=== PATIENT | female | born 1950 | race Native Hawaiian/Other Pacific Islander ===

== ENCOUNTER 2018-08-21 15:47 | Outpatient (CLI) | payer OTHER ==
[~2018-08-21 15:47] MED LIST: ASPIRIN325 M1 PO; ATEN50TA36 PO; FENOFIBRATE160 MG PO; HYDR25TA60 PO; LIPITOR40 MG PO; LOTREL1 CA3 PO; MULTIVITAMI1 PO; NEXIUM40 M1 PO
== END 2018-08-21 23:34 | disposition home or self-care (01) ==
LOC: LABW 15:47
DX: R19.7 Diarrhea, unspecified (principal)
CPT/HCPCS: 82272; 82705; 83630; 87015; 87045; 87324; 87328; 87329; 87449; 87899

== ENCOUNTER 2019-01-13 12:32 | Outpatient (CLI) | payer OTHER ==
[2019-01-13 12:48] LABS: PLATELET COUNT 299 K/uL (152-353)
== END 2019-01-13 21:57 | disposition home or self-care (01) ==
LOC: LABW 12:32 → US 13:00 → LABW 21:57
PROVIDERS: Internal Medicine Gastroenterology
DX: R10.31 Right lower quadrant pain (principal)
CPT/HCPCS: 36415; 80076; 85027

== ENCOUNTER 2019-04-14 11:03 | Outpatient (CLI) | payer OTHER ==
[2019-04-14 11:59] LABS: PLATELET COUNT 270 K/uL (152-353)
[2019-04-14 12:28] LABS: POTASSIUM 4.1 mmol/L (3.6-5.2)
== END 2019-04-14 20:27 | disposition home or self-care (01) ==
LOC: US 11:03
PROVIDERS: Internal Medicine
DX: N18.3 Chronic kidney disease, stage 3 (moderate) (principal); E87.5 Hyperkalemia
CPT/HCPCS: 36415; 80069; 81000; 82570; 83883; 84155; 84550; 85027; 86038

== ENCOUNTER 2021-02-06 09:40 | Outpatient (CLI) | payer OTHER ==
[2021-02-06 10:18] LABS: POTASSIUM 3.9 mmol/L (3.6-5.2)
== END 2021-02-06 18:57 | disposition home or self-care (01) ==
LOC: CT 09:40
PROVIDERS: ATTEND Nurse Practitioner Family
DX: Z12.31 Encounter for screening mammogram for malignant neoplasm of breast (principal); R10.31 Right lower quadrant pain; I10 Essential (primary) hypertension; Z87.448 Personal history of other diseases of urinary system; Z09 Encounter for follow-up examination after completed treatment for conditions other than malignant neoplasm
CPT/HCPCS: 36415; 80053; Q9963

== ENCOUNTER → 2021-02-12 | Outpatient (CLI) | payer OTHER ==
[2021-02-12 11:47] LABS: PLATELET COUNT 275 K/uL (152-353)
[2021-02-12 12:09] LABS: POTASSIUM 4.3 mmol/L (3.6-5.2)
== END ==
LOC: LABW 11:23
PROVIDERS: ATTEND Internal Medicine Gastroenterology
DX: D64.9 Anemia, unspecified (principal)
CPT/HCPCS: 36415; 80053; 83540; 83550; 85027

== ENCOUNTER 2021-04-03 15:20 | Outpatient (CLI) | payer OTHER | END 2021-04-03 19:31 | disposition home or self-care (01) | LOC: RAD 15:20 | PROVIDERS: ATTEND Nurse Practitioner Family | DX: M25.551 Pain in right hip (principal); M54.59 Other low back pain ==

== ENCOUNTER 2022-05-07 12:56 | Outpatient (CLI) | payer OTHER | END 2022-05-07 20:41 | disposition home or self-care (01) | LOC: LABW 12:56 | PROVIDERS: ATTEND Internal Medicine Gastroenterology | DX: K59.1 Functional diarrhea (principal) | CPT/HCPCS: 82272; 87015; 87045; 87899 ==

== ENCOUNTER 2022-06-06 13:56 | Outpatient (CLI) | payer OTHER | END 2022-06-06 19:08 | disposition home or self-care (01) | LOC: RAD 13:56 | PROVIDERS: ATTEND Nurse Practitioner Family | DX: F41.1 Generalized anxiety disorder (principal); M54.6 Pain in thoracic spine ==